=== PATIENT | male | born 1955 ===

== ENCOUNTER 2021-08-18 12:30 | Outpatient (CLI) | payer MEDICARE | END 2021-08-18 12:31 | disposition home or self-care (01) | LOC: TBSIIMAG 12:30 | PROVIDERS: ATTEND Neurological Surgery | DX: M54.2 Cervicalgia (principal); M47.812 Spondylosis without myelopathy or radiculopathy, cervical region; M47.813 Spondylosis without myelopathy or radiculopathy, cervicothoracic region | CPT/HCPCS: 72141 ==